=== PATIENT | female | born 1960 | race Caucasian/White ===

== ENCOUNTER 2018-06-20 12:56 | Emergency (ER) | payer BC ==
[~2018-06-20] VITALS: Ht 154.9 cm; Wt 68.0 kg
[2018-06-20] MEDS ORDERED: KETOROLAC TROMETHAMINE 30 MG/ML VIAL IV STA (13:12)
--- NOTE | 2018-06-20 14:03 | Diagnostic Imaging Report ---
History:Hypertension, dizziness Comparison studies: None Technique: Axial images were obtained from the skull base to the vertex. Coronal and sagittal reconstructions obtained from the axial data. Dose modulation, iterative reconstruction, and/or weight based adjustment of the mA/kV was utilized to reduce the radiation dose to as low as reasonably achievable. Findings: Scalp/skull: No abnormalities. No fractures, blastic or lytic lesions. Extra-axial spaces: No masses. No fluid collections. Brain sulci: Appropriate for age. Ventricles: Normal in size and configuration. No hydrocephalus. Parenchyma: No abnormal densities. No masses, hemorrhage, acute or chronic cortical vascular insults. Sellar/suprasellar region: No abnormalities Craniocervical junction: Patent foramen magnum. No Chiari one malformation. IMPRESSION: No abnormalities . Signed by: DR Ivan Gutierrez M.D. on 06/20/2018 1:59 PM
[2018-06-20 14:33] LABS: BASOPHILS # (AUTO) 0.1 (0.0-0.1); BASOPHILS % 0.8 % (0.0-1.0); EOSINOPHILS # (AUTO) 0.1 (0.0-0.4); EOSINOPHILS % 1.3 % (0.0-6.0); HEMATOCRIT 41.8 % (34.2-44.1); LYMPHOCYTES # (AUTO) 1.4 (1.0-3.2); LYMPHOCYTES % 19.2 % (18.0-39.1); MEAN CORPUSCULAR HGB CONC 33.5 g/dL (31-35); MEAN CORPUSCULAR VOLUME 92.5 fL (81-99); MONOCYTES # (AUTO) 0.3 (0.2-0.8); MONOCYTES % 4.4 % (4.4-11.3); NEUTROPHILS # (AUTO) 5.5 (2.1-6.9); NEUTROPHILS % 74.2 % (38.7-80.0); PLATELET COUNT 224 x10e3/uL (140-360); RED BLOOD COUNT 4.52 x10e6/uL (3.6-5.1); RED CELL DISTRIBUTION WIDTH 12.5 % (11.7-14.4)
[2018-06-20 14:42] LABS: ALANINE AMINOTRANSFERASE 33 IU/L (0-55); ALBUMIN 4.3 g/dL (3.5-5.0); ALBUMIN/GLOBULIN RATIO 1.1 (0.8-2.0); ALKALINE PHOSPHATASE 71 IU/L (40-150); ANION GAP 9.7 mmol/L (8-16); BLOOD UREA NITROGEN 16 mg/dL (7-26); BUN/CREATININE RATIO 16 (6-25); CALCIUM 10.2 mg/dL (8.4-10.2); CARBON DIOXIDE 29 mmol/L (22-29); CHLORIDE 107 mmol/L (98-107); CREATINE KINASE 102 IU/L (29-168); CREATININE, SERUM 1.02 mg/dL (0.57-1.11); EST GLOMERULAR FILTRATION RATE 55 ML/MIN (60-); GLUCOSE 118 mg/dL (74-118); POTASSIUM 3.7 mmol/L (3.5-5.1); SODIUM 142 mmol/L (136-145)
[2018-06-20 15:40] LABS: BILIRUBIN,URINE NEGATIVE (NEGATIVE); CLARITY,URINE CLEAR (CLEAR); COLOR,URINE YELLOW (YELLOW); KETONES,URINE NEGATIVE (NEGATIVE); LEUKOCYTE ESTERASE ,URINE NEGATIVE (NEGATIVE); NITRITE,URINE NEGATIVE (NEGATIVE); PROTEIN,URINE DIPSTICK NEGATIVE (NEGATIVE); URINE UROBILINOGEN 0.2 mg/dL (0.2 - 1)
[2018-06-20 15:51] VITALS: BP 128/80
[2018-06-20 15:53] LABS: BACTERIA,URINE RARE /HPF; EPITHELIAL CELLS,URINE RARE /LPF; WBC,URINE (MAN) 0-5 /HPF (0-5)
--- OUTSIDE RECORDS SUMMARY | 2018-06-29 11:25 | XMS REPORT | Clinical Summary ---
Author Author [facility] Address Unknown Phone Unavailable Care Team Providers Care Administrative Assistant Data Entry Name Role Phone Margoth Dixon MD PCP Allergies Active Allergy Reactions Severity Noted Date Comments No Known Drug Allergies 08/19/2017 Current Medications Prescription Sig. Disp. Refills Start End Date Status Date nitrofurantoin, Take 100 mg by mouth 2 08/31/20 Discontin macrocrystal-monohydrate, (two) times a day. Take 17 ued (MACROBID) 100 MG capsule with food for 7 days Active Problems No known active problems Encounters Date Type Specialty Care Team Description 08/31/2017 Office Visit Obstetrics and Gynecology Malathi Diop MD Well woman exam with routine gynecological exam (Primary Dx); Screening for osteoporosis; Encounter for breast cancer screening other than mammogram; Wellness examination 08/19/2017 Abstract Obstetrics and Gynecology Malathi Diop MD after 06/19/2017 Family History Medical History Relation Name Comments Lung cancer Father Relation Name Status Comments Father Social History Tobacco Use Types Packs/Day Years Used Date Never Smoker Smokeless Tobacco: Never Used Alcohol Use Drinks/Week oz/Week Comments No Sex Assigned at Date Recorded Not on file Last Filed Vital Signs Vital Sign Reading Time Taken Blood Pressure - - Pulse 66 08/31/2017 11:18 AM AUDIO VISUAL TECH Temperature 36.7 C (98.1 F) 08/31/2017 11:18 AM AUDIO VISUAL TECH Respiratory Rate - - Oxygen Saturation - - Inhaled Oxygen - - Concentration Weight 69.7 kg (153 lb 9.6 oz) 08/31/2017 11:18 AM AUDIO VISUAL TECH Height 157.5 cm (5' 2") 08/31/2017 11:18 AM AUDIO VISUAL TECH Body Mass Index 28.09 08/31/2017 11:18 AM AUDIO VISUAL TECH Plan of Treatment Health Maintenance Due Date Last Done Comments SHINGRIX VACCINE (#1) 2009 INFLUENZA VACCINE 04/14/2018 BREAST CANCER SCREENING 12/01/2018 12/01/2016 CERVICAL CANCER SCREENING 08/31/2020 08/31/2017, 09/27/2015 COLON CANCER SCREENING 06/19/2026 06/19/2016 Procedures Procedure Name Priority Date/Time Associated Diagnosis Comments PAP IG, CT-NG, RFX HPV Routine 08/31/2017 Well woman exam with Results for this ASCU 2:40 PM AUDIO VISUAL TECH routine gynecological procedure are in the exam results section. after 06/19/2017 Results * Pap IG, Ct-Ng, rfx HPV [facility]U (08/31/2017 2:40 PM) Diagnosis Comment [facility] Comment: NEGATIVE FOR INTRAEPITHELIAL LESION AND MALIGNANCY. CELLULAR CHANGES ASSOCIATED WITH ATROPHY ARE PRESENT. THIS SPECIMEN WAS RESCREENED PART OF OUR BLASTING ENTRY SPECIALIST PROGRAM. Specimen adequacy Comment [facility] Comment: Satisfactory for evaluation.Endocervical and/or squamous metaplastic cells (endocervical component) are present. Clinician provided ICD10 CommentComment: Z01.419 [facility] Performed by: CommentComment: Paul Jason, Patient Service Specialist (ASCP) QC reviewed by: Comment [facility] Comment: Neelima Cano, Patient Service Specialist (ASCP) Reviewed at: [address] [id number] Comment . [facility] Note: Comment [facility] Comment: The Pap smear is a screening test designed to aid in the detection of premalignant and malignant conditions of the uterine cervix.It is not a diagnostic procedure and should not be used as the sole means of detecting cervical cancer.Both false-positive and false-negative reports do occur. Test methodology Comment [facility] Comment: This liquid based ThinPrep(R) pap test was screened with the use of an image guided system. Reflex Comment [facility] Comment: The HPV DNA reflex criteria were not met with this specimen result therefore, no HPV testing was performed. Chlamydia, nucleic acid Negative Negative [facility] 02 amp Gonococcus by nucleic Negative Negative [facility] 02 acid amp Specimen Cervical Narrative Performed At Performed at:01 - [facility] [address], [place], [id number] Speech Language Pathology Assistant: Estefanía Ta MD, Phone:[phone] Performed at:02 - [facility] [place] [address], [place], [id number] Speech Language Pathology Assistant: Estefanía Ta MD, Phone:[phone] Specimen Comment: No. of containers..01 ThinPrep Vial Performing Organization Address City/State/Zipcode Phone Number [facility] 02 after 06/19/2017 Insurance Payer Benefit Subscriber ID Type Phone Address Plan / Group [facility] xxxxxxxxx HMO/PPO THCARE CHOICE/CHO ICE +
== END 2018-06-20 15:50 | disposition home or self-care (01) ==
LOC: ER 12:56
DX: R42 Dizziness and giddiness (principal); M79.662 Pain in left lower leg; R53.1 Weakness
CPT/HCPCS: 36415; 70450; 80053; 81001; 82550; 82553; 84484; 85025; 93005; 93970; 99284; J1885